=== PATIENT | female | born 1950 | race Caucasian/White ===

== ENCOUNTER 2021-10-11 12:33 | Inpatient (IN) | payer OTHER, MEDICAID ==
[~2021-10-11] VITALS: Ht 162.6 cm; Wt 93.4 kg
[2021-10-11 21:40] VITALS: BP 131/91
--- NOTE | 2021-10-12 04:34 | NUR ---
10-11-20 RECEIVED REPORT FROM ED ANNETTE LOVE. PT ARRIVED ON UNIT 2140 PT AAOX4, VS B/P 131/91, P90, R 18, T97.1, 02 SAT 95% RA RR EVEN AND NONLABORED ON RA. PT LUNGS CLEAR, HT RR, ABD SOFT/ACTIVE. PT REPORTS HAVING THOUGHTS OF SUICIDE SINCE HER RECENTLY DIAGNOSIS OF PARKINSON'S, SLIGHT TREMORS IN UE. PT PLAN IS TO OD. PT REPORTS SHE HAD STOPPED ALL MEDICATION FOR OVER A MONTH, MAYBE ONE OR TWO. PT DENIES HI AND PAIN. PT HX HTN, CVA, FACTOR 5, MELANOMA, PARKINSON'S, BIOLAR AND DEPRESSION. PT PRESENTS IRRITABLE AND ANXIOUS OVER HER DESIRE TO . HCP Farhat MENDEZ NP CONTACTED. HCP Mayi EL NP CONTACTED REQUESTED BART FOR PT CURRENT MEDICATION TOMORROW. LATER PT REPORTED SHE COULD NOT SLEEP AND TRAZADONE 100MG HAD NOT BE WORKING. CONTACTED Mayi EL NP AND RECEIVED ORDERS. DURING ROUND PT REPORTED NOT BEING ABLE TO SLEEP, Mayi EL NP CONTACTD AND ORDER RECEIVE. 0400 ROUND NOTED PT WAS RESTING WITH EYES CLOSED, AND DID NOT OPEN HER EYES. PT WILL CONTINUE TO BE MONITOR PER [facility].
[2021-10-12] MEDS ORDERED: LAMOTRIGINE150 MG PO (04:47)
[2021-10-12] MEDS ORDERED: PROAIR HFA8.5 GM INH (04:47)
[2021-10-12] MEDS ORDERED: NORVASC10 MG PO (04:47)
[2021-10-12] MEDS ORDERED: TRAZODONE HCL100 MG PO (04:47)
[2021-10-12] MEDS ORDERED: FOSAMAX 70 MG T70 MG PO (04:48)
[2021-10-12] MEDS ORDERED: BACLOFEN 10MG T10 MG PO (04:48)
[2021-10-12] MEDS ORDERED: ABILIFY10 MG PO (04:48)
[2021-10-12 06:24] LABS: CHOLESTEROL 189 mg/dL (<200); HDL CHOLESTEROL 54 mg/dL (>40); LDL CHOLESTEROL 125 mg/dL (<100); TC:HDL 3.5 Ratio (Not establshd); TRIGLYCERIDE 54 mg/dL (<150); VLDL 11 mg/dL (<40)
[2021-10-12 06:37] LABS: SERUM ASSESSMENT Clear
[2021-10-12 08:53] VITALS: BP 122/64
[2021-10-12 09:05] VITALS: BP 122/64
--- NOTE | 2021-10-12 10:27 | NUR ---
RESUMMED CARE FROM OVERNIGHT SHIFT THIS AM, PATIENT IN ROOM RESTING QUIETLY. PATIENT DURING ASSESSMENT STATES SHE STILL HAS PASSIVE SI SHE STATES SHE WOULD TAKE PILLS. SHE STATES SHE DOES NOT KNOW WHAT THE PERCIPATANT IS CAUSING HER TO FEEL THIS WAY. PATIENT STATES DEPRESSION AND ANXIETY IS A 10, PATIENT DENIES HI/AH/VH AT PRESENT. PATIENT ATE BREAKFAST TOOK MEDICATION WITHOUT INCIDENCE. PATIENT DID COME TO GROUPS PATIENTS AFFECT FLAT SAD NO BEHAVIORS. PATIENTS ABDOMEN SOFT BOWEL SOUNDS PRESENT PATIENT HAD BM THIS AM; PATIENTS LUNGS CLEAR. WILL CONTINUE TO MONITOR PATIENT FOR SAFETY AND BEHAVIORS.
--- NOTE | 2021-10-12 12:17 | NUR ---
Pt new admit to [facility]. Noted with PMH bipolar, parkinson's, HTN. Current UTI and SI, depression. Noted with slight tremors to BUE r/t progression of Parkinson's. Meds and labs reviewed, A1c pending. On a regular diet with 100% intake at bkft this AM. No weight hx, unable to visit with pt today. Will follow up tomorrow when more information available and attempt to speak with her again. Low nutrition risk at this time.
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
--- NOTE | 2021-10-12 15:41 | EKG ---
[address] [address] ELECTROCARDIOGRAM REPORT Name: DANN YU Room #: [facility]- ADM IN M.R.#: [id number] Admission: 10/11/21 Attend Phys: Lorna Bautista MD Discharge: Date of : 50 Report #: [id number] [facility] Test Date: 2021-10-12 Test Time: 15:19:13 Pat Name: DANN YU Department: Room: [facility] Gender: F Business Analysis Specialist: OSMIN : 1950 Requested By: Bart Almeida Order Number: [id number] MD: Surjit Rocha Measurements Intervals [place] Rate: 74 P: -12 FL: 134 QRS: -4 QRSD: 71 T: 15 QT: 537 QTc: 596 Interpretive Statements Sinus rhythm Low voltage, precordial leads Abnormal R-wave progression, early transition Compared to ECG 09/08/2012 06:22:44 Low QRS voltage now present Left ventricular hypertrophy now present T-wave abnormality now present Electronically Signed On 10-12-2021 15:41:03 NEW CAR DRIVER by Surjit Rocha [email or web address] <ELECTRONICALLY SIGNED> By: Surjit Rocha MD, FACC 10/12/21 1541 1519 1519 Surjit Rocha MD, [facility] /EPI
[2021-10-13 02:06] LABS: GLYCOHEMOGLOBIN (HGB A1C) 5.3 % (4.8-5.6)
--- NOTE | 2021-10-13 03:37 | NUR ---
Assumed care of pt when admitted from ED at 0013 on this date. Pt arrived to unit via W/C et was transported to room. Pt ambulated from chair to bed ad uzair with steady gait. Pt confused et mildly agitated at time of admission. Pt does not have Guardian or DPOA at present time et cognitively unable to sign consent forms. Admission packet from facility contains two affidavits for involuntary hold due to danger to self from attempted OD on ASA that resulted in pt's hospitalization at [facility]. Pt states that she has "come from [facility]" at present time et does not comprehend where she is at. Pt was calm et cooperative with initial exam. VSWNL. Health assessment with no abnormalities noted at present time. Pt has small abrasion to right forearm currently left open to air. APRNs for psych et hospitalists notified of admission et orders received. Pt's mother contacted et given code for communication. Mother gave some psych history et states that she would like to talk with psychiatrist to give the history needed. Pt currently resting in bed with eyes closed. Will continue to monitor per unit protocol.
--- NOTE | 2021-10-13 06:05 | NUR ---
Assumed care of pt at 1900. Pt calm et cooperaitve this shift. Took medications whole without difficulty. Ambulates the halls ad uzair with steady gait. VSWNL. Health assessment with no abnormalities noted at present time. Pt was up several times throughout the noc unable to sleep. 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 Isolated in room most of shift. Pt denies SI/HI at present time. Currently resting in bed with eyes closed. Will continue to monitor per unit protocol.
[2021-10-13] MEDS ORDERED: PLAVIX 75 MG TA75 MG PO (07:49)
[2021-10-13] MEDS ORDERED: CARBIDOPA-LEVO1 EAC1 PO (07:49)
[2021-10-13] MEDS ORDERED: OXYBUTYNIN CHLOR5 M1 PO (07:49)
[2021-10-13] MEDS ORDERED: ROPINIROLE HCL0.5 MG PO (07:50)
[2021-10-13] MEDS ORDERED: PROTONIX40 M4 PO (07:50)
[2021-10-13] MEDS ORDERED: K-DUR10 MEQ PO (07:50)
[2021-10-13] MEDS ORDERED: DULOXETINE HCL30 MG PO (07:51)
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
[2021-10-13 09:25] VITALS: BP 97/56
--- NOTE | 2021-10-13 11:40 | NUR ---
SAD FACIAL EXPRESSION-DELAYED VERBAL RESPONSES AND CONSTRICTED AFFECT DURING AM ASSESSMENT.SITTING AT TABLE EATING BREAKFAST WHEN APPROACHED WITH AM MEDICATIONS-COMPLIENT WITH TAKING MEDS AND DOES ACKNOWLEDGE FEELING DEPRESSED FOR SOME TIME-DENIES CURRENT SI/SH. UNABLE TO ID RECENT STRESSORS OR TRIGGERING EVENTS FOR MOST RECENT DEPRESSIVE EPISODE-APPEARS ON THE VERGE OF TEARS WHEN SPEAKING WITH THIS NURSE. AM NORVASC HELD FOR BP 97/50-DOES REPORT SOME DIZZINESS WITH POSITION CHANGES-ASSISTED BACK TO BED AND PLACED ON FALLS PRECAUTIONS FOR REPORTED DIZZINESS-ORTHOSTATIC BP'S COMPLETED PER MD ORDER
--- NOTE | 2021-10-13 17:11 | NUR ---
APPROACHED NURSES STATION AT APPROX 1530 AND ASKED FISHER OYSTER IF DR WAS GOING TO SEE HER TODAY-WHEN THIS RN FOLLOWED UP REPORTS NEEDING TO TALK TO MD STATING SHE IS WORRIED BECAUSE IS "FEELING WORSE" WHEN ASKED TO EELOBORATE ON THIS REPORTS FEELING RESTLESS "LIKE IM CRAWLING OUT OF MY SKIN" "SHAKEY ON THE INSIDE" ALSO STATES WANTS TO ASK MD FOR MEDICATIONS TO TAKE AT BEDTIME FOR SLEEP SHE FEELS FATIGUED D/T RESTLESS SLEEP LAST PM. MD CONTACTED AND STATES WILL COME TO SEE PT
[2021-10-13 21:02] VITALS: BP 115/71
--- NOTE | 2021-10-14 06:06 | NUR ---
Assumed care of pt at 1900. Pt calm et cooperative this shift. Flat affect this shift. Took medications whole without difficulty. Ambulates the halls ad uzair with steady gait. Isolated in room most of shift. VSWNL. Health assessment with no abnormalities noted this shift. Denies SI/Hi at present time. Currently resting in bed with eyes closed. Will continue to monitor per unit protocol.
[2021-10-14 07:42] VITALS: BP 109/76
[2021-10-14 09:11] VITALS: BP 109/76
--- NOTE | 2021-10-14 10:09 | NUR ---
RESUMMED CARE FROM OVERNIGHT SHIFT THIS AM, PATIENT ALERT ORIENTED TIMES 4. PATIENT DENIES SI/HI/AH/VH AT PRESENT, PATIENT AFFECT VERY FLAT. SHE STATES HER ANXIETY AND DEPRESSION IS A 6 NOW; SOME INPROVEMENT FROM 2 DAYS AGO. PATIENT ATE BREAKFAST TOOK MEDICATION WITHOUT INCIDENCE. PATIENTS ABDOMEN SOFT BOWEL SOUNDS PRESENT. PATIENTS LUNGS CLEAR PATIENT PASSIVELY PARTICIPATES IN GROUPS. NO BEHAVIORS NOTED WILL CONTINUE TO MONITOR PATIENT FOR SAFETY AND BEHAVIORS.
[2021-10-14 19:32] VITALS: BP 116/73
--- NOTE | 2021-10-15 04:25 | NUR ---
Assumed care of pt at 1900. Pt calm et cooperative this shift. Took medications whole without difficulty. Ambulates the halls ad uzair with steady gait. VSWNL. Health assessment with no abnormalities noted at present time. Denies SI/HI/AVH at present time. Isolated in room most of shift. Currently resting in bed with eyes closed. Will continue to monitor per unit protocol.
[2021-10-15 08:58] VITALS: BP 102/44
--- NOTE | 2021-10-15 11:23 | NUR ---
STATES TO SECURITIES ATTORNEY AND THIS RN DURING AM MED PASS THAT SHE "FEELS BETTER" WHEN ASKED HOW STATES "LESS DEPRESSED" DENIES SI/SH AND STATES FEELS LIKE SHE SLEPT BETTER LAST PM. WAS OUT OF ROOM FOR BREAKFAST BUT WHEN RT FILM NUMBERER ENTERED DAYROOM GOT UP AND WENT TO ROOM STATING SHE NEEDED TO USE RESTROOM. APPROX [address] SALAS REPORTED THAT SHE HAD JUST SEEN PT IN HER ROOM AND SHE WAS REPORTING DIZZINESS AND NAUSEA-UPON ASSESSMENT IN ROOM APPEARS TO BE RESTING QUIETLY WITH EYES CLOSE-DID WAKEN TO VERBAL QUEING AND STATES TO NURSE SHE "FEELS A LITTLE "SICK TO STOMACH" AND JUST NEEDS TO REST "I FEEL BETTER WHEN I LAY DOWN" BP LOW THIS AM AT 0800 ON MACHINE 102/44-AM NORVASC HELP. BP RECHECK MANUALLY AND IS 108/64 P70. SKIN W/D. ORTHOSTATIC BPS CHECKED. ZOFRAN 4MG GIVEN PO PRN FOR REPORTED NAUSEA. GIVEN SPRITE AND 8 0Z OF WATER-TO PUSH PO FLUIDS PER MD ORDER.
--- NOTE | 2021-10-15 13:09 | NUR ---
REPORTS FEELING "A LITTLE QUEASY" UPON ARRIVAL OF LUNCH TRAY-DID HAVE BITES OF FOOD BROUGHT-REQUESTING SOUP/CRACKERS AND HOT TEA WHICH SHE DID COMPLETEEE-ALSO REQUESTED AND RECEIVED JELLO AND SPRITE.
[2021-10-15 19:35] VITALS: BP 125/81
[2021-10-15 20:07] VITALS: BP 125/81
--- NOTE | 2021-10-16 01:23 | NUR ---
PATIENT CARE WAS RESUMED AT 1900. SHE WAS SITTING ON THE OUCH IN THE [place] ARE. SHE IS CALM WITH A FLAT AFFECT FACIAL EXPRESION. SHE TALKS ONLY WHEN TALED TO. SHE DENIES PINS/SIAVH/HI. SHE TOOK HER MEDS WHOLE AND ABLE TO COMMUNICATE VERY EFFECTIVELY WITH THE NURSE.SHE IS CONTINET OF BOWEL AND BLADDER. BS ACTIVE X4 QUAD. BED IS LOW, LOCKED ND ALARMEDD. CONTINUE CARE
[2021-10-16 08:34] VITALS: BP 101/50
[2021-10-16 09:28] VITALS: BP 101/50
--- NOTE | 2021-10-16 12:23 | NUR ---
RESUMMED CARE FROM OVERNIGHT SHIFT THIS AM, PATIENT ALERT ORIENTED TIMES 4. PATIENT ATE BREAKFAST TOOK MEDICATION WITHOUT INCIDENCE. PATIENT DENIES SI/HI/AH/VH AT PRESENT. PATIENTS ABDOMEN SOFT BOWEL SOUNDS PRESENT PATIENTS LUNGS CLEAR. PATIENT PARTICIPATES IN GROUPS STATES DEPRESSION AND ANXIETY IS ABOUT A [address] PINEDA TALKED WITH PATIENT AND SHE WILL DISCHARGE TOMORROW. WILL CONTINUE TO MONITOR PATIENT FOR SAFETY AND BEHAVIORS.
--- NOTE | 2021-10-16 15:24 | NUR ---
Phone call to [facility] regarding therapy for the patient - Center is closed for the holiday.
[2021-10-16 19:50] VITALS: BP 121/75
[2021-10-16 19:54] VITALS: BP 121/75
--- NOTE | 2021-10-17 01:24 | NUR ---
PATIENT CARE WAS RESUMED AT 1900. SHE IS ALERT AND ORINETED. MODERATE ASSIT WITH CARE. SHE IS CALM AND SPEAKS ONLY WHEN SPOKEN TO. SHE TOOK HER MEDS WHOLE. LUNGS ARE CLEAR BS ACTIVE X4 QUAD. CONTINENT OF BOWEL AND BLADDER. SHE IS ABLE TO VERBALIZE HER NEED. VERY EXCITED ABOUT GOING HOME. BED IS LOW, LOCKED AND Q12 MINUTES CHECKS ARE ON GOING. CONTINUE CARE
[2021-10-17 07:45] VITALS: BP 156/99
[2021-10-17 07:46] VITALS: BP 107/47
--- NOTE | 2021-10-17 11:41 | NUR ---
Alert and orientated X4. Flat affect. Denies SI/HI. States she is ready to go home, pt satisfaction form completed independently. Ambulates with regular, steady gait. Breath sounds clear. Reg HR auscultated. Color pink with brisk capillary refill and palpable peripheral pulses. No edema noted. Independent with voiding. Active bowel sounds over soft, rounded abdomen. Isolates to room when not in group.
[2021-10-17] MEDS ORDERED: Cephalexin 500 MG Ca PO (12:51)
[2021-10-17] MEDS ORDERED: NORVASC 2.5 MG2.5 MG PO (12:53)
[2021-10-17] MEDS ORDERED: EFFEXOR XR75 MG PO (12:54)
[2021-10-17] MEDS ORDERED: SEROQUEL XR 20200 MG PO (12:55)
[2021-10-17] MEDS ORDERED: REQUIP 1 MG TABL1 M1 PO (12:55)
[2021-10-17 13:07] VITALS: BP 107/47
--- NOTE | 2021-10-17 13:51 | NUR ---
Phone call to [facility] - scheduled psychiatric appointment for patient for 10/25/2021 at 4:00pm with Magaly Leung. The patient's on-going therapist is no longer with the [facility]. The center does have a sheet of referrals to provide. Email received from [facility] - Therapist referrals Phone call to [facility] - Voice message regarding scheduling therapy for the patient. SW went online and schedule a new patient appointment for the patient. Phone call to -[facility] - scheduled transportation to home for patient. FAX sent to [facility] - discharge summary.
--- NOTE | 2021-10-18 08:55 | D ---
[facility] [place] [address] DISCHARGE SUMMARY Name: DANN YU Room #: 518A-A [facility] IN M.R.#: [id number] Admission: 10/11/21 Attend Phys: Bart Almeida DO Discharge: 10/17/21 Date of : 50 Report #: [id number] THIS REPORT FOR: cc: Apryl Gupta MD, Rachel MD Kerstein,Bart Mccracken DO ~ DATE OF SERVICE: 10/17/2021 INPATIENT PSYCHIATRIC DISCHARGE SUMMARY ATTENDING PSYCHIATRIST: Bart Almeida DO [employer] SANDER AT TIME OF DISCHARGE: Demi Villaseñor MD PRIMARY DIAGNOSIS: Bipolar 1 disorder, depressed. ADDITIONAL COMORBIDITIES: Include obesity, BMI 35.4, UTI, mild intermittent nausea. ADDITIONAL DIAGNOSES: Periods of hypertension. Norvasc was decreased from 10 to 2.5 mg. Parkinson's disease diagnosed by PCP, needs to see a neurologist. Restless leg syndrome. DIET: The patient's diet is regular. ACTIVITY LEVEL: As tolerated. SOCIAL HISTORY: No alcohol, no illicit drugs, no smoking. The patient tried Sinemet several months ago, but discontinued it and it is not clear to this author that she really has Parkinson's disease, so she definitely should be seen in neurologic consultation. DISCHARGE MEDICATIONS: Albuterol sulfate 8.5 grams 2 puffs every 4-6 hours p.r.n. for wheezing and shortness of breath, Plavix 75 mg oral daily. She has a history of factor V Leiden deficiency. She has been on a course of Keflex 500 mg oral twice daily due to positive culture at [facility]; however, I doubt this is a true infection. She has remained asymptomatic. Amlodipine besylate 2.5 mg oral daily at 0900 hours. Her venlafaxine extended release 75 mg oral daily. She is on Seroquel XR 200 mg oral at bedtime for mood stabilization. She is on ropinirole 0.5 mg oral daily at 0900 hours for restless legs syndrome. The patient was given crisis hotline information. She is discharged at this time. LABORATORY DATA: Significant laboratories this admission, A1c 5.3, triglycerides 54, cholesterol 189, LDL 125, HDL 54. COVID-19 serology was not detected on 10/14 and 10/16. She had an electrocardiogram. She is on an [facility] [address] [place] [address] DISCHARGE SUMMARY Name: DANN YU Room #: 518A-A [facility]#: [id number] Admission: 10/11/21 Attend Phys: Bart Almeida DO Discharge: 10/17/21 Date of : 50 Report #: [id number] antipsychotic. QTc was 596, SD interval of 134 milliseconds. We could not find a clear prolonging agent. Recommend periodic checks. REASON FOR ADMISSION: A 71-year-old mildly obese female initially presented to [facility] due to continued suicidal thoughts. She was medically cleared at [place]. She is client at [facility], but due to COVID and televideo demands and technology not working, lost to follow up. She had discontinued Sinemet as well as Lamictal antipsychotic ranging from a couple of weeks to months back. HOSPITAL COURSE: The patient was admitted to Geriatric Psychiatry Unit. She had abandoned her home psych meds weeks to months before admission. She was started on Effexor as well as Seroquel XR with no medication history. Pharmacist and hospitalist reviewed her QTc and she has healthy cardiac history, so we decided to leave it be. The patient's affect progressively improved during the hospitalization. She is free of suicidal ideation in the last 3 days before discharge. PHYSICAL EXAMINATION: VITAL SIGNS: On day of discharge, temperature 35.6, pulse 58, respirations 17, BP 107/47. The BMI of 35.4, weight 93.4 kg. MUSCULOSKELETAL: Well-developed, age-appearing female. Normal gait and station. MENTAL STATUS EXAMINATION: Well-developed female, appearing stated age. Attention and concentration fair. Speech: Normal rate, volume, tone. Thought Process: Linear and goal oriented. Thought content: Focused on discharge. Mood and affect "good", euthymic, congruent, broad range. Denied SI, HI. No auditory, visual, or tactile hallucinations. Denied hopelessness, helplessness. Memory not formally tested. On the day of discharge, insight and judgment fair, fund of knowledge above average. Prognosis for this patient is fair as she engages in outpatient treatment including general medical psychiatric followup. <ELECTRONICALLY SIGNED> By: Bart Almeida DO 10/18/2155 16 50 Bart Almeida DO /nt
== END 2021-10-17 13:35 | disposition home or self-care (01) | DRG 885 ==
LOC: SBH 12:33
PROVIDERS: Psychiatry & Neurology Psychiatry; ADMIT Psychiatry & Neurology Psychiatry; ATTEND Psychiatry & Neurology Psychiatry
DX: F31.30 Bipolar disorder, current episode depressed, mild or moderate severity, unspecified (principal); N39.0 Urinary tract infection, site not specified; R45.851 Suicidal ideations; E66.9 Obesity, unspecified; I10 Essential (primary) hypertension; G20 Parkinson's disease; Z20.822 Contact with and (suspected) exposure to COVID-19; Z68.35 Body mass index [BMI] 35.0-35.9, adult; Z79.899 Other long term (current) drug therapy; Z90.49 Acquired absence of other specified parts of digestive tract; Z90.710 Acquired absence of both cervix and uterus; Z85.820 Personal history of malignant melanoma of skin; Z88.8 Allergy status to other drugs, medicaments and biological substances; Z91.14 Patient's other noncompliance with medication regimen
CPT/HCPCS: 10880

== ENCOUNTER 2021-10-11 13:16 | Emergency (ER) | payer OTHER, MEDICAID ==
[~2021-10-11] VITALS: Ht 160 cm; Wt 92.1 kg
[2021-10-11 21:36] VITALS: BP 120/67
[2021-10-12] MEDS ORDERED: LAMOTRIGINE150 MG PO (04:47)
[2021-10-12] MEDS ORDERED: NORVASC10 MG PO (04:47)
[2021-10-12] MEDS ORDERED: TRAZODONE HCL100 MG PO (04:47)
[2021-10-12] MEDS ORDERED: PROAIR HFA8.5 GM INH (04:47)
[2021-10-12] MEDS ORDERED: BACLOFEN 10MG T10 MG PO (04:48)
[2021-10-12] MEDS ORDERED: ABILIFY10 MG PO (04:48)
[2021-10-12] MEDS ORDERED: FOSAMAX 70 MG T70 MG PO (04:48)
== END 2021-10-11 21:37 | disposition admitted as inpatient to this hospital (09) ==
LOC: ER 13:16
PROVIDERS: Nurse Practitioner Family
DX: N39.0 Urinary tract infection, site not specified (principal); Z20.822 Contact with and (suspected) exposure to COVID-19; R45.851 Suicidal ideations; I10 Essential (primary) hypertension; Z88.8 Allergy status to other drugs, medicaments and biological substances